=== PATIENT | female | born 1980 | race African-American/Black ===

== ENCOUNTER 2018-12-15 15:02 | Emergency (ER) | payer SELFPAY ==
[~2018-12-15] VITALS: Ht 162.6 cm; Wt 59.4 kg
[2018-12-15 15:14] VITALS: BP 136/83
--- NOTE | 2018-12-15 15:24 | PHYS DOC ---
Past Medical History Past Medical History: Anemia, Hypertension Adult General Chief Complaint Chief Complaint: RECTAL BLEED HPI HPI Patient is a 38-year-old female with history of anemia, hypertension, who presents to the ED today complaining of bloody stools noted one time yesterday a nd one time today. Patient stated this has happened 1 year ago. She is also complaining of mild abdominal pain described as cramping. Denies any fever, nausea, vomiting, or diarrhea. Denies being on any anticoagulants, she states she is allergic to aspirin. Denies anything exacerbating or relieving her pain. Review of Systems Review of Systems Constitutional: Denies fever or chills [] Eyes: Denies change in visual acuity, redness, or eye pain [] HENT: Denies nasal congestion or sore throat [] Respiratory: Denies cough or shortness of breath [] Cardiovascular: No additional information not addressed in HPI [] GI: Reports lower abdominal pain, reports rectal bleeding, denies nausea, vomiting, bloody stools or diarrhea [] : Denies dysuria or hematuria [] Musculoskeletal: Denies back pain or joint pain [] Integument: Denies rash or skin lesions [] Neurologic: Denies headache, focal weakness or sensory changes [] All other systems were reviewed and found to be within normal limits, except as documented in this note. Current Medications Current Medications Current Medications Medications (Trade) Dose Ordered Sig/Mónica Start Time Stop Time Status Last Admin Dose Admin Azithromycin (Zithromax) 1,000 mg 1X ONCE 12/15/18 16:15 12/15/18 16:16 DC 12/15/18 16:43 1,000 MG Ceftriaxone Sodium (Rocephin) 1 gm 1X ONCE 12/15/18 16:15 12/15/18 16:16 DC 12/15/18 16:43 1 GM Famotidine (Pepcid Vial) 20 mg 1X ONCE 12/15/18 15:30 12/15/18 16:05 DC 12/15/18 15:48 20 MG Info (CONTRAST GIVEN -- Rx MONITORING) 1 each PRN DAILY PRN 12/15/18 16:15 12/17/18 16:14 Iohexol (Omnipaque 300 Mg/ml) 75 ml 1X ONCE 12/15/18 16:15 12/15/18 16:16 DC 12/15/18 16:22 75 ML Metronidazole (Flagyl) 2,000 mg 1X ONCE 12/15/18 16:15 12/15/18 16:16 DC 12/15/18 16:43 2,000 MG Sodium Chloride 1,000 ml @ 1,000 mls/hr 1X ONCE 12/15/18 15:30 12/15/18 16:29 DC 12/15/18 15:31 1,000 MLS/HR Allergies Allergies Allergies Coded Allergies Type Severity Reaction Last Updated Verified No Known Drug Allergies 12/15/18 No Physical Exam Physical Exam Constitutional: Well developed, well nourished, no acute distress, non-toxic appearance. [] HENT: Normocephalic, atraumatic, bilateral external ears normal, oropharynx m oist, no oral exudates, nose normal. [] Eyes: PERRLA, EOMI, conjunctiva normal, no discharge. [] Neck: Normal range of motion, no tenderness, supple, no stridor. [] Cardiovascular:Heart rate regular rhythm, no murmur [] Lungs & Thorax: Bilateral breath sounds clear to auscultation [] Abdomen: Bowel sounds normal, soft, no tenderness, no masses, no pulsatile masses. [] Rectal exam External rectal noted for 2 or 3 peanut size hemorrhoids, no internal hemorrhoids. No palpable masses, no stool/bleeding noted on the lower rectal vault. Skin: Warm, dry, no erythema, no rash. [] Back: No tenderness, no CVA tenderness. [] Extremities: No tenderness, no cyanosis, no clubbing, ROM intact, no edema. [] Neurologic: Alert and oriented X 3, normal motor function, normal sensory function, no focal deficits noted. [] Psychologic: Affect normal, judgement normal, mood normal. [] Current Patient Data Vital Signs Vital Signs Date Time Temp Pulse Resp B/P (MAP) Pulse Ox O2 Delivery O2 Flow Rate FiO2 12/15/18 15:14 98.5 136/83 (100) 98.5 Lab Values Laboratory Tests Test 12/15/18 15:10 12/15/18 15:27 12/15/18 15:32 Urine Collection Type Unknown Urine Color Sonal Urine Clarity Cloudy Urine pH 6.0 Urine Specific [place] >=1.030 Urine Protein 100 mg/dL (NEG-TRACE) Urine Glucose (UA) Negative mg/dL (NEG) Urine Ketones (Stick) Negative mg/dL (NEG) Urine Blood Large (NEG) Urine Nitrite Positive (NEG) Urine Bilirubin Negative (NEG) Urine Urobilinogen Dipstick 1.0 mg/dL (0.2 mg/dL) Urine Leukocyte Esterase Moderate (NEG) Urine RBC Tntc /HPF (0-2) Urine WBC Tntc /HPF (0-4) Urine Squamous Epithelial Cells Many /LPF Urine Bacteria Many /HPF (0-FEW) Urine Trichomonas Present Urine Opiates Screen Neg (NEG) Urine Methadone Screen Neg (NEG) Urine Barbiturates Neg (NEG) Urine Phencyclidine Screen Pos (NEG) Urine Amphetamine/Methamphetamine Neg (NEG) Urine Benzodiazepines Screen Neg (NEG) Urine Cocaine Screen Neg (NEG) Urine Cannabinoids Screen Pos (NEG) Urine Ethyl Alcohol Neg (NEG) POC Urine HCG, Qualitative Hcg negative (Negative) White Blood Count 4.7 x10^3/uL (4.0-11.0) Red Blood Count 3.55 x10^6/uL (3.50-5.40) Hemoglobin 10.5 g/dL (12.0-15.5) L Hematocrit 32.0 % (36.0-47.0) L Mean Corpuscular Volume 90 fL (79-100) Mean Corpuscular Hemoglobin 30 pg (25-35) Mean Corpuscular Hemoglobin Concent 33 g/dL (31-37) Red Cell Distribution Width 14.4 % (11.5-14.5) Platelet Count 307 x10^3/uL (140-400) Neutrophils (%) (Auto) 37 % (31-73) Lymphocytes (%) (Auto) 51 % (24-48) H Monocytes (%) (Auto) 9 % (0-9) Eosinophils (%) (Auto) 2 % (0-3) Basophils (%) (Auto) 1 % (0-3) Neutrophils # (Auto) 1.8 x10^3/uL (1.8-7.7) Lymphocytes # (Auto) 2.4 x10^3/uL (1.0-4.8) Monocytes # (Auto) 0.4 x10^3/uL (0.0-1.1) Eosinophils # (Auto) 0.1 x10^3/uL (0.0-0.7) Basophils # (Auto) 0.1 x10^3/uL (0.0-0.2) Sodium Level 143 mmol/L (136-145) Potassium Level 3.7 mmol/L (3.5-5.1) Chloride Level 105 mmol/L (98-107) Carbon Dioxide Level 29 mmol/L (21-32) Anion Gap 9 (6-14) Blood Urea Nitrogen 13 mg/dL (7-20) Creatinine 1.0 mg/dL (0.6-1.0) Estimated GFR (Cockcroft-Gault) 75.5 BUN/Creatinine Ratio 13 (6-20) Glucose Level 90 mg/dL (70-99) Calcium Level 8.5 mg/dL (8.5-10.1) Total Bilirubin 0.2 mg/dL (0.2-1.0) Aspartate Amino Transferase (AST) 16 U/L (15-37) Alanine Aminotransferase (ALT) 14 U/L (14-59) Alkaline Phosphatase 67 U/L (46-116) Total Protein 6.8 g/dL (6.4-8.2) Albumin 3.3 g/dL (3.4-5.0) L Albumin/Globulin Ratio 0.9 (1.0-1.7) L Lipase 105 U/L (73-393) Ethyl Alcohol Level < 10 mg/dL (0-10) Laboratory Tests 12/15/18 15:32 Laboratory Tests 12/15/18 15:32 EKG EKG [] Radiology/Procedures Radiology/Procedures []PROCEDURE: CT ABD PELV W/ IV CONTRST ONLY CT abdomen pelvis with contrast. HISTORY: Abdominal pain, rectal bleeding CT scan the abdomen pelvis was done using 75 mL Isovue-370 contrast. Lung bases are clear. There is no effusion. A liver lesion is not identified. The gallbladder is contracted but the patient was not nothing by mouth. Spleen and adrenal glands are normal. Pancreas is normal. There is no renal mass or hydronephrosis. Bowel pattern is normal. Appendix is normal. Uterus and ovaries are normal. No abnormal bowel enhancement. There is no extravasated contrast into the bowel. There is not definitive CT evidence of a colitis IMPRESSION: 1. Contracted gallbladder. 2. Bowel pattern is normal. 3. Normal appendix. 4. No other acute finding noted in the abdomen or pelvis. PQRS Compliance Statement: One or more of the following individualized dose reduction techniques were utilized for this examination: 1. Automated exposure control 2. Adjustment of the mA and/or kV according to patient size 3. Use of iterative reconstruction technique Electronically signed by: Ward Zuniga MD (12/15/2018 4:29 PM) [id number] DICTATED and SIGNED BY: WARD ZUNIGA MD DATE: 12/15/18 1629 Course & Med Decision Making Course & Med Decision Making Pertinent Labs and Imaging studies reviewed. (See chart for details) This is a 38-year-old female patient presented to the ED today with complaints of rectal bleeding noted one time today and one time yesterday. On rectal exam no stool or bleeding was noted. Patient is a smoker, encouraged to consider smoking cessation. CBC with normal WBC, hemoglobin 10.5, hematocrit 32.0-patient has history of chronic anemia and is on iron tablets. CMP-no acute findings. Urine analysis is noted for UTI as well as Trichomonas. Patient was given standard STD treatment in the ED. Education provided. CT of the abdomen and pelvic is negative for any acute distress. Discharged to home. Discussed remedies of managing hemorrhoids including management of constipation as well as using [id number] remedies like Anusol suppository, docusate sodium, Tucks. Follow-up with PCP in 1-2 weeks. Dragon Disclaimer Dragon Disclaimer This electronic medical record was generated, in whole or in part, using a voice recognition dictation system. Departure Departure Impression: Primary Impression: Rectal bleed Additional Impressions: Hemorrhoids Smoking addiction Urinary tract infection Trichomonas vaginitis Disposition: HOME, SELF-CARE Condition: STABLE Referrals: BERNA PINA MD follow up as needed for bloody stools and hemorrhoids Patient Instructions: Hemorrhoids, Rectal Bleeding, [id number], Urinary Tract Infection Additional Instructions: You were evaluated in the emergency room for rectal bleeding which we suspect is from the hemorrhoids. Consider increasing your dietary fiber intake. Consider increasing your water intake. Use [id number] remedies including Anusol suppository cream for hemorrhoids. Consider smoking cessation. You were positive for urinary tract infection as well as Trichomonas. You were treated in the emergency room for Trichomonas, let all your partners know you have trichomonas and ask them seek treatment too. You also have urinary tract infection, ensure you complete your antibiotics. Scripts Hydrocortisone Acetate (ANUSOL-HC) 25 Mg Supp.rect 1 SUPP RC BID, #14 SUPP Prov: PATTI PEREZ PULMONOLOGY TECHNICIAN 12/15/18 Cephalexin (CEPHALEXIN) 500 Mg Capsule 1 CAP PO BID, #14 CAP Prov: PATTI PEREZ APRN 12/15/18 Problem Qualifiers Additional Impressions: Hemorrhoids Hemorrhoid type: unspecified Qualified Codes: K64.9 - Unspecified hemorrhoids Urinary tract infection Urinary tract infection type: site unspecified Hematuria presence: without hematuria Qualified Codes: N39.0 - Urinary tract infection, site not specified PATTI PEREZ APRN Dec 15, 2018 15:24
[2018-12-15] MEDS ORDERED: FAMOTIDINE 20 MG/2 ML VIAL IVP ONE (15:30)
[2018-12-15] MEDS ORDERED: IV NORMAL SALINE 1000ML BAG 1,000 ML IV ONE (15:30)
[2018-12-15 15:42] LABS: BASO # 0.1 x10^3/uL (0.0-0.2); BASO % 1 % (0-3); EOS # 0.1 x10^3/uL (0.0-0.7); EOS % 2 % (0-3); HEMOGLOBIN 10.5 g/dL (12.0-15.5); LYMPH # 2.4 x10^3/uL (1.0-4.8); LYMPH % 51 % (24-48); MEAN CORPUSCULAR HEMOGLOBIN 30 pg (25-35); MEAN CORPUSCULAR HGB CONC 33 g/dL (31-37); MEAN CORPUSCULAR VOLUME 90 fL (79-100); MONO # 0.4 x10^3/uL (0.0-1.1); MONO % 9 % (0-9); NEUT # 1.8 x10^3/uL (1.8-7.7); NEUT % 37 % (31-73); PLATELET COUNT 307 x10^3/uL (140-400); RED BLOOD COUNT 3.55 x10^6/uL (3.50-5.40); RED CELL DISTRIBUTION WIDTH 14.4 % (11.5-14.5); WHITE BLOOD COUNT 4.7 x10^3/uL (4.0-11.0)
[2018-12-15 15:42] LABS: BILIRUBIN,URINE NEGATIVE (NEG); CLARITY,URINE CLOUDY; COLOR,URINE AMBER; NITRITE,URINE POSITIVE (NEG); PROTEIN,URINE 100 mg/dL (NEG-TRACE)
[2018-12-15 15:47] LABS: BARBITURATES NEG (NEG); BENZODIAZEPINES NEG (NEG); CANNABINOIDS POS (NEG); COCAINE NEG (NEG); METHADONE NEG (NEG); OPIATES NEG (NEG); PHENCYCLIDINE POS (NEG)
[2018-12-15 15:49] LABS: CALCIUM 8.5 mg/dL (8.5-10.1); GFR 75.5; POTASSIUM 3.7 mmol/L (3.5-5.1)
[2018-12-15 15:49] LABS: AMPHETAMINE/METHAMPHETAMINE NEG (NEG)
[2018-12-15 15:53] LABS: BACTERIA,URINE MANY /HPF (0-FEW); RBC,URINE TNTC /HPF (0-2); SQUAMOUS EPITHELIAL CELL,UR MANY /LPF; WBC,URINE TNTC /HPF (0-4)
[2018-12-15 15:54] LABS: TRICHOMONAS,URINE PRESENT
[2018-12-15 15:56] LABS: ALBUMIN 3.3 g/dL (3.4-5.0); ALBUMIN/GLOBULIN RATIO 0.9 (1.0-1.7); TOTAL BILIRUBIN 0.2 mg/dL (0.2-1.0); TOTAL PROTEIN 6.8 g/dL (6.4-8.2)
[2018-12-15] MEDS ORDERED: IOHEXOL 300 MG/ML 100ML VIAL. IV ONE (16:15)
[2018-12-15] MEDS ORDERED: cefTRIAXone IV Push 1 GM VIAL. IVP ONE (16:15)
[2018-12-15] MEDS ORDERED: metroNIDAZOLE 500 MG TABLET PO ONE (16:15)
[2018-12-15] MEDS ORDERED: CONTRAST GIVEN. MC PRN (16:15)
[2018-12-15] MEDS ORDERED: AZITHROMYCIN 250 MG TABLET. PO ONE (16:15)
--- NOTE | 2018-12-15 16:32 | RAD ---
CT abdomen pelvis with contrast. HISTORY: Abdominal pain, rectal bleeding CT scan the abdomen pelvis was done using 75 mL Isovue-370 contrast. Lung bases are clear. There is no effusion. A liver lesion is not identified. The gallbladder is contracted but the patient was not nothing by mouth. Spleen and adrenal glands are normal. Pancreas is normal. There is no renal mass or hydronephrosis. Bowel pattern is normal. Appendix is normal. Uterus and ovaries are normal. No abnormal bowel enhancement. There is no extravasated contrast into the bowel. There is not definitive CT evidence of a colitis IMPRESSION: 1. Contracted gallbladder. 2. Bowel pattern is normal. 3. Normal appendix. 4. No other acute finding noted in the abdomen or pelvis. PQRS Compliance Statement: One or more of the following individualized dose reduction techniques were utilized for this examination: 1. Automated exposure control 2. Adjustment of the mA and/or kV according to patient size 3. Use of iterative reconstruction technique Electronically signed by: Ward Sparks MD (12/15/2018 4:29 PM) [id number]
[2018-12-15] MEDS ORDERED: CEPH500C PO (16:51)
[2018-12-15] MEDS ORDERED: HYDR25SU18 RC (16:51)
== END 2018-12-15 17:05 | disposition home or self-care (01) ==
LOC: ER 15:02
DX: K62.5 Hemorrhage of anus and rectum (principal); R10.30 Lower abdominal pain, unspecified; K64.4 Residual hemorrhoidal skin tags; N39.0 Urinary tract infection, site not specified; A59.01 Trichomonal vulvovaginitis; F17.200 Nicotine dependence, unspecified, uncomplicated; I10 Essential (primary) hypertension
CPT/HCPCS: 36415; 74177; 80053; 80307; 81001; 81025; 83690; 85025; 96374; 96375; 99285; G0480; J0696; J3490; J7030; Q0144; Q9967; 96361

== ENCOUNTER 2019-01-11 14:07 | Emergency (ER) | payer SELFPAY ==
[~2019-01-11] VITALS: Ht 162.6 cm; Wt 58.1 kg
[~2019-01-11 14:07] MED LIST: CEPH500C PO; HYDR25SU18 RC
[2019-01-11 16:10] LABS: BASO % 1 % (0-3); EOS # 0.1 x10^3/uL (0.0-0.7); EOS % 3 % (0-3); HEMATOCRIT 33.7 % (36.0-47.0); HEMOGLOBIN 11.2 g/dL (12.0-15.5); LYMPH # 2.1 x10^3/uL (1.0-4.8); LYMPH % 57 % (24-48); MEAN CORPUSCULAR HEMOGLOBIN 29 pg (25-35); MEAN CORPUSCULAR HGB CONC 33 g/dL (31-37); MEAN CORPUSCULAR VOLUME 88 fL (79-100); MONO # 0.3 x10^3/uL (0.0-1.1); MONO % 8 % (0-9); NEUT # 1.1 x10^3/uL (1.8-7.7); NEUT % 31 % (31-73); PLATELET COUNT 242 x10^3/uL (140-400); RED BLOOD COUNT 3.82 x10^6/uL (3.50-5.40); RED CELL DISTRIBUTION WIDTH 13.7 % (11.5-14.5); WHITE BLOOD COUNT 3.6 x10^3/uL (4.0-11.0)
[2019-01-11 16:17] LABS: BILIRUBIN,URINE SMALL (NEG); CLARITY,URINE TURBID; COLOR,URINE AMBER; NITRITE,URINE NEGATIVE (NEG); PROTEIN,URINE 30 mg/dL (NEG-TRACE); UROBILINOGEN,URINE 0.2 mg/dL (0.2 mg/dL)
[2019-01-11 16:19] LABS: CREATININE 0.8 mg/dL (0.6-1.0); GFR 97.7; POTASSIUM 3.4 mmol/L (3.5-5.1)
[2019-01-11 16:25] LABS: ALBUMIN 3.7 g/dL (3.4-5.0); TOTAL BILIRUBIN 0.6 mg/dL (0.2-1.0); TOTAL PROTEIN 7.3 g/dL (6.4-8.2)
[2019-01-11 16:25] LABS: AMPHETAMINE/METHAMPHETAMINE NEG (NEG); BARBITURATES NEG (NEG); BENZODIAZEPINES NEG (NEG); CANNABINOIDS POS (NEG); COCAINE NEG (NEG); METHADONE NEG (NEG); OPIATES NEG (NEG); PHENCYCLIDINE POS (NEG)
[2019-01-11 16:26] LABS: FECAL OB PT NEGATIVE (NEG)
[2019-01-11 17:11] LABS: AMORPHOUS SEDIMENT,UR PRESENT /HPF; BACTERIA,URINE 0 /HPF (0-FEW); RBC,URINE 0 /HPF (0-2); SQUAMOUS EPITHELIAL CELL,UR MOD /LPF; WBC,URINE 0 /HPF (0-4)
[2019-01-11] MEDS ORDERED: HYDR30CR61 TP (17:45)
--- NOTE | 2019-01-11 17:45 | PHYS DOC ---
Past Medical History Past Medical History: Anemia, Hypertension Additional Past Surgical Histo: D&C Alcohol Use: Occasionally Drug Use: Marijuana, Phencyclidine Adult General Chief Complaint Chief Complaint: RECTAL BLEED HPI HPI Patient is a 38 year old female with history of hypertension, anemia, who presents to the ED today complaining of rectal bleeding from hemorrhoids that is chronic, as well as mild abdominal cramping during bowel movements. Patient states she was seen in the ED a month ago for the same complaints and was instructed to buy some medication. She states she could not afford the medication has did not use it. Denies any nausea, vomiting. Review of Systems Review of Systems Constitutional: Denies fever or chills [] Eyes: Denies change in visual acuity, redness, or eye pain [] HENT: Denies nasal congestion or sore throat [] Respiratory: Denies cough or shortness of breath [] Cardiovascular: No additional information not addressed in HPI [] GI: Reports abdominal pain, rectal pain, bloody stools, denies nausea, vomiting, or diarrhea [] : Denies dysuria or hematuria [] Musculoskeletal: Denies back pain or joint pain [] Integument: Denies rash or skin lesions [] Neurologic: Denies headache, focal weakness or sensory changes [] Endocrine: Denies polyuria or polydipsia [] All other systems were reviewed and found to be within normal limits, except as documented in this note. Allergies Allergies Allergies Coded Allergies Type Severity Reaction Last Updated Verified No Known Drug Allergies 12/15/18 No Physical Exam Physical Exam Constitutional: Well developed, well nourished, no acute distress, non-toxic appearance. [] HENT: Normocephalic, atraumatic, bilateral external ears normal, oropharynx moist, no oral exudates, nose normal. [] Eyes: PERRLA, EOMI, conjunctiva normal, no discharge. [] Neck: Normal range of motion, no tenderness, supple, no stridor. [] Cardiovascular:Heart rate regular rhythm, no murmur [] Lungs & Thorax: Bilateral breath sounds clear to auscultation [] Abdomen: Bowel sounds normal, soft, no tenderness, no masses, no pulsatile eugenia s. [] Rectal exam External rectal region with small amount of hemorrhoids, no internal hemorrhoids, none of this hemorrhoids are thrombosed. Skin: Warm, dry, no erythema, no rash. [] Back: No tenderness, no CVA tenderness. [] Extremities: No tenderness, no cyanosis, no clubbing, ROM intact, no edema. [] Neurologic: Alert and oriented X 3, normal motor function, normal sensory function, no focal deficits noted. [] Psychologic: Affect normal, judgement normal, mood normal. [] Current Patient Data Vital Signs Vital Signs Date Time Temp Pulse Resp B/P (MAP) Pulse Ox O2 Delivery O2 Flow Rate FiO2 01/11/19 15:19 97.9 70 14 126/82 (97) 99 Room Air 97.9 Lab Values Laboratory Tests Test 01/11/19 14:25 01/11/19 14:43 01/11/19 15:10 01/11/19 16:00 Urine Collection Type Unknown Urine Color Sonal Urine Clarity Turbid Urine pH 6.0 Urine Specific [place] >=1.030 Urine Protein 30 mg/dL (NEG-TRACE) Urine Glucose (UA) Negative mg/dL (NEG) Urine Ketones (Stick) Negative mg/dL (NEG) Urine Blood Moderate (NEG) Urine Nitrite Negative (NEG) Urine Bilirubin Small (NEG) Urine Urobilinogen Dipstick 0.2 mg/dL (0.2 mg/dL) Urine Leukocyte Esterase Negative (NEG) Urine RBC 0 /HPF (0-2) Urine WBC 0 /HPF (0-4) Urine Squamous Epithelial Cells Mod /LPF Urine Amorphous Sediment Present /HPF Urine Bacteria 0 /HPF (0-FEW) Urine Mucus Slight /LPF Urine Opiates Screen Neg (NEG) Urine Methadone Screen Neg (NEG) Urine Barbiturates Neg (NEG) Urine Phencyclidine Screen Pos (NEG) Urine Amphetamine/Methamphetamine Neg (NEG) Urine Benzodiazepines Screen Neg (NEG) Urine Cocaine Screen Neg (NEG) Urine Cannabinoids Screen Pos (NEG) Urine Ethyl Alcohol Neg (NEG) POC Urine HCG, Qualitative Hcg negative (Negative) Stool Occult Blood Negative (NEG) White Blood Count 3.6 x10^3/uL (4.0-11.0) L Red Blood Count 3.82 x10^6/uL (3.50-5.40) Hemoglobin 11.2 g/dL (12.0-15.5) L Hematocrit 33.7 % (36.0-47.0) L Mean Corpuscular Volume 88 fL (79-100) Mean Corpuscular Hemoglobin 29 pg (25-35) Mean Corpuscular Hemoglobin Concent 33 g/dL (31-37) Red Cell Distribution Width 13.7 % (11.5-14.5) Platelet Count 242 x10^3/uL (140-400) Neutrophils (%) (Auto) 31 % (31-73) Lymphocytes (%) (Auto) 57 % (24-48) H Monocytes (%) (Auto) 8 % (0-9) Eosinophils (%) (Auto) 3 % (0-3) Basophils (%) (Auto) 1 % (0-3) Neutrophils # (Auto) 1.1 x10^3/uL (1.8-7.7) L Lymphocytes # (Auto) 2.1 x10^3/uL (1.0-4.8) Monocytes # (Auto) 0.3 x10^3/uL (0.0-1.1) Eosinophils # (Auto) 0.1 x10^3/uL (0.0-0.7) Basophils # (Auto) 0.0 x10^3/uL (0.0-0.2) Sodium Level 142 mmol/L (136-145) Potassium Level 3.4 mmol/L (3.5-5.1) L Chloride Level 104 mmol/L (98-107) Carbon Dioxide Level 27 mmol/L (21-32) Anion Gap 11 (6-14) Blood Urea Nitrogen 13 mg/dL (7-20) Creatinine 0.8 mg/dL (0.6-1.0) Estimated GFR (Cockcroft-Gault) 97.7 BUN/Creatinine Ratio 16 (6-20) Glucose Level 96 mg/dL (70-99) Calcium Level 9.0 mg/dL (8.5-10.1) Total Bilirubin 0.6 mg/dL (0.2-1.0) Aspartate Amino Transferase (AST) 18 U/L (15-37) Alanine Aminotransferase (ALT) 15 U/L (14-59) Alkaline Phosphatase 65 U/L (46-116) Total Protein 7.3 g/dL (6.4-8.2) Albumin 3.7 g/dL (3.4-5.0) Albumin/Globulin Ratio 1.0 (1.0-1.7) Lipase 68 U/L (73-393) L Ethyl Alcohol Level < 10 mg/dL (0-10) Laboratory Tests 01/11/19 16:00 Laboratory Tests 01/11/19 16:00 EKG EKG [] Radiology/Procedures Radiology/Procedures [] Course & Med Decision Making Course & Med Decision Making Pertinent Labs and Imaging studies reviewed. (See chart for details) This is a 38-year-old female patient who presents to the ED today complaining of rectal pain with bleeding due to hemorrhoids as well as lower abdominal pain. Symptoms are chronic. CBC with a normal WBC, hemoglobin 11.2, hematocrit 33.7-around patient's baseline. CMP with no acute findings. Urine analysis is negative for infection. Urine drug screen noted for PCP and marijuana use. Patient was again advised to stop using drugs. Lisa from the PAT team was available, she went and talked to patient We discussed hemorrhoid management. Dragon Disclaimer Dragon Disclaimer This electronic medical record was generated, in whole or in part, using a voice recognition dictation system. Departure Departure Impression: Primary Impression: Hemorrhoids Additional Impressions: Rectal bleed Drug abuse Disposition: HOME, SELF-CARE Condition: STABLE Referrals: NO PCP (PCP) FER HERRING MD Follow-up in one week Patient Instructions: Hemorrhoids Additional Instructions: You were evaluated in the emergency room for rectal bleeding, and noted to have hemorrhoids. Please increase your dietary fiber intake, increase your water use the prescribed medications as ordered. Scripts Hydrocortisone (ANUSOL-HC) 30 Gm Cream..g. 1 RACHAEL TP BID, #30 GM 1 Refill Prov: PATTI PEREZ APRN 01/11/19 Problem Qualifiers Primary Impression: Hemorrhoids Hemorrhoid type: unspecified Qualified Codes: K64.9 - Unspecified hemorrhoids PATTI PEREZ APRN Jan 11, 2019 17:45
[2019-01-11 17:54] VITALS: BP 153/102
== END 2019-01-11 18:02 | disposition home or self-care (01) ==
LOC: ER 14:07
DX: K64.5 Perianal venous thrombosis (principal); F12.10 Cannabis abuse, uncomplicated; F16.10 Hallucinogen abuse, uncomplicated; I10 Essential (primary) hypertension; Z86.2 Personal history of diseases of the blood and blood-forming organs and certain disorders involving the immune mechanism
CPT/HCPCS: 36415; 80053; 80307; 81001; 81025; 82274; 83690; 85025; 99284; G0480

== ENCOUNTER 2019-08-09 16:13 | Emergency (ER) | payer SELFPAY ==
[~2019-08-09] VITALS: Ht 162.6 cm; Wt 58.0 kg
[~2019-08-09 16:13] MED LIST changes: +HYDR30CR61 TP
--- NOTE | 2019-08-09 16:49 | PHYS DOC ---
Past Medical History Past Medical History: Anemia, Hypertension Additional Past Surgical Histo: D&C Smoking Status: Current Every Day Smoker Alcohol Use: Occasionally Drug Use: Marijuana, Phencyclidine Adult General Chief Complaint Chief Complaint: ALCOHOL INTOXICATION HPI HPI Patient is a 39 year old female with history of anemia, hypertension, drug abuse, who presents to the ED today to be evaluated after being found on the streets passed out and drank. They report she admitted to drinking vodka. Review of Systems Review of Systems Constitutional: Denies fever or chills [] Eyes: Denies change in visual acuity, redness, or eye pain [] HENT: Denies nasal congestion or sore throat [] Respiratory: Denies cough or shortness of breath [] Cardiovascular: No additional information not addressed in HPI [] GI: Denies abdominal pain, nausea, vomiting, bloody stools or diarrhea [] : Denies dysuria or hematuria [] Musculoskeletal: Denies back pain or joint pain [] Integument: Denies rash or skin lesions [] Neurologic: Denies headache, focal weakness or sensory changes [] Psych: Reports alcohol intoxication All other systems were reviewed and found to be within normal limits, except as documented in this note. Current Medications Current Medications Current Medications Medications (Trade) Dose Ordered Sig/Mónica Start Time Stop Time Status Last Admin Dose Admin Azithromycin (Zithromax) 1,000 mg 1X ONCE 08/09/19 18:30 08/09/19 18:32 DC Ceftriaxone Sodium (Rocephin) 1 gm 1X ONCE 08/09/19 18:30 08/09/19 18:32 DC Labetalol HCl (Normodyne Iv Push) 10 mg 1X ONCE 08/09/19 16:45 08/09/19 16:46 DC 08/09/19 17:22 10 MG Metronidazole (Flagyl) 2,000 mg 1X ONCE 08/09/19 18:45 08/09/19 18:46 Multivitamins 10 ml/Thiamine HCl 100 mg/Folic Acid 1 mg/Sodium Chloride 1,011.2 ml @ 1,000.088 mls/hr 1X ONCE 08/09/19 16:45 08/09/19 17:45 DC 08/09/19 17:22 1,000.088 MLS/HR Ondansetron HCl (Zofran) 4 mg 1X ONCE 08/09/19 18:30 08/09/19 18:32 DC Allergies Allergies Allergies Coded Allergies Type Severity Reaction Last Updated Verified No Known Drug Allergies 12/15/18 No Physical Exam Physical Exam Constitutional: Shivering. Well developed, well nourished, no acute distress, non-toxic appearance. [] HENT: Normocephalic, atraumatic, bilateral external ears normal, oropharynx moist, no oral exudates, nose normal. [] Eyes: PERRLA, EOMI, conjunctiva normal, no discharge. [] Neck: Normal range of motion, no tenderness, supple, no stridor. [] Cardiovascular: Tachycardic Lungs & Thorax: Bilateral breath sounds clear to auscultation [] Abdomen: Bowel sounds normal, soft, no tenderness, no masses, no pulsatile masses. [] Skin: Warm, dry, no erythema, no rash. [] Back: No tenderness, no CVA tenderness. [] Extremities: No tenderness, no cyanosis, no clubbing, ROM intact, no edema. [] Neurologic: Alert and oriented X 1, normal motor function, normal sensory function, no focal deficits noted. [] Psychologic: Flat affect, appears intoxicated Current Patient Data Vital Signs Vital Signs Date Time Temp Pulse Resp B/P (MAP) Pulse Ox O2 Delivery O2 Flow Rate FiO2 08/09/19 17:22 78 203/144 08/09/19 16:15 97.6 18 100 Room Air 97.6 Lab Values Laboratory Tests Test 08/09/19 16:40 08/09/19 17:00 08/09/19 17:04 White Blood Count 5.8 x10^3/uL (4.0-11.0) Red Blood Count 4.71 x10^6/uL (3.50-5.40) Hemoglobin 13.7 g/dL (12.0-15.5) Hematocrit 41.7 % (36.0-47.0) Mean Corpuscular Volume 89 fL (79-100) Mean Corpuscular Hemoglobin 29 pg (25-35) Mean Corpuscular Hemoglobin Concent 33 g/dL (31-37) Red Cell Distribution Width 14.8 % (11.5-14.5) H Platelet Count 307 x10^3/uL (140-400) Neutrophils (%) (Auto) 46 % (31-73) Lymphocytes (%) (Auto) 46 % (24-48) Monocytes (%) (Auto) 6 % (0-9) Eosinophils (%) (Auto) 2 % (0-3) Basophils (%) (Auto) 1 % (0-3) Neutrophils # (Auto) 2.6 x10^3/uL (1.8-7.7) Lymphocytes # (Auto) 2.6 x10^3/uL (1.0-4.8) Monocytes # (Auto) 0.3 x10^3/uL (0.0-1.1) Eosinophils # (Auto) 0.1 x10^3/uL (0.0-0.7) Basophils # (Auto) 0.1 x10^3/uL (0.0-0.2) Urine Collection Type U cath Urine Color Yellow Urine Clarity Cloudy Urine pH 7.0 (<5.0-8.0) Urine Specific [place] 1.015 (1.000-1.030) Urine Protein Negative mg/dL (NEG-TRACE) Urine Glucose (UA) Negative mg/dL (NEG) Urine Ketones (Stick) Negative mg/dL (NEG) Urine Blood Large (NEG) Urine Nitrite Negative (NEG) Urine Bilirubin Negative (NEG) Urine Urobilinogen Dipstick 0.2 mg/dL (0.2 mg/dL) Urine Leukocyte Esterase Large (NEG) Urine RBC >40 /HPF (0-2) Urine WBC Tntc /HPF (0-4) Urine Squamous Epithelial Cells Mod /LPF Urine Bacteria Many /HPF (0-FEW) Urine Mucus Marked /LPF Urine Trichomonas Present Urine Test Negative (NEG) Urine Opiates Screen Neg (NEG) Urine Methadone Screen Neg (NEG) Urine Barbiturates Neg (NEG) Urine Phencyclidine Screen Pos (NEG) Urine Amphetamine/Methamphetamine Neg (NEG) Urine Benzodiazepines Screen Neg (NEG) Urine Cocaine Screen Neg (NEG) Urine Cannabinoids Screen Pos (NEG) Urine Ethyl Alcohol Pos (NEG) Sodium Level 135 mmol/L (136-145) L Potassium Level 3.6 mmol/L (3.5-5.1) Chloride Level 99 mmol/L (98-107) Carbon Dioxide Level 25 mmol/L (21-32) Anion Gap 11 (6-14) Blood Urea Nitrogen 11 mg/dL (7-20) Creatinine 0.7 mg/dL (0.6-1.0) Estimated GFR (Cockcroft-Gault) 113.3 BUN/Creatinine Ratio 16 (6-20) Glucose Level 79 mg/dL (70-99) Calcium Level 8.8 mg/dL (8.5-10.1) Magnesium Level 1.9 mg/dL (1.8-2.4) Total Bilirubin 0.1 mg/dL (0.2-1.0) L Aspartate Amino Transferase (AST) 25 U/L (15-37) Alanine Aminotransferase (ALT) 21 U/L (14-59) Alkaline Phosphatase 90 U/L (46-116) Total Protein 8.2 g/dL (6.4-8.2) Albumin 3.9 g/dL (3.4-5.0) Albumin/Globulin Ratio 0.9 (1.0-1.7) L Lipase 79 U/L (73-393) Salicylates Level 3.5 mg/dL (2.8-20.0) Salicylate Last Dose Date Unknown Salicylate Last Dose Time Unknown Acetaminophen Level < 2 mcg/ml (10-30) L Acetaminophen Last Dose Date Unknown Acetaminophen Last Dose Time Unknown Ethyl Alcohol Level 21 mg/dL (0-10) H Laboratory Tests 08/09/19 16:40 Laboratory Tests 08/09/19 17:04 EKG EKG [] Radiology/Procedures Radiology/Procedures []PROCEDURE: CT HEAD WO CONTRAST CT HEAD WO CONTRAST History: Altered mental status Comparison: None. Technique: Noncontrast CT imaging was performed of the head. Exposure: One or more of the following individualized dose reduction techniques were utilized for this examination: 1. Automated exposure control 2. Adjustment of the mA and/or kV according to patient size 3. Use of iterative reconstruction technique. Findings: No acute extra-axial or parenchymal hemorrhage is identified. There is no significant intra-axial mass effect, midline shift, or extra-axial fluid collection. The mariscal-white differentiation of the major vascular territories is preserved. The ventricles, sulci, and cisterns are within normal limits in size and configuration. The mastoid air cells and the visualized paranasal sinuses are aerated. No acute calvarial abnormality is identified. Impression: 1. No acute intracranial abnormality is identified. Electronically signed by: Micah Lee MD (08/09/2019 5:45 PM) [facility] DICTATED and SIGNED BY: MICAH LEE MD DATE: 08/09/19 4499 Course & Med Decision Making Course & Med Decision Making Pertinent Labs and Imaging studies reviewed. (See chart for details) This is a 39-year-old female patient presenting to the ED today to be evaluated for alcohol intoxication. Patient was found passed out on the streets. CT of the head is negative for any acute findings. CBC, CMP, lipase-no acute findings UDS positive for alcohol, alcohol level 21, also positive for marijuana and PCP. Urine positive for UTI and Trichomonas. Patient was treated in the emergency room. Patient is currently sober, awake, answering questions and following directions. Her blood pressure was 234/148 HR 83 on arrival to the ED, she has history of uncontrolled hypertension. She was given labetalol in the ED. Blood pressure has come down to 190/100's. Discharged on clonidine. She refused help with alcohol and drug abuse. Discharge to home. Dragon Disclaimer Dragon Disclaimer This electronic medical record was generated, in whole or in part, using a voice recognition dictation system. Departure Departure Impression: Primary Impression: ETOHism Additional Impressions: Trichomonas vaginitis Urinary tract infection PCP (phencyclidine) abuse Accelerated hypertension Disposition: HOME, SELF-CARE Condition: STABLE Referrals: NO PCP (PCP) Follow-up with [facility] for drug abuse Patient Instructions: Alcohol Problems, Trichomoniasis, Urinary Tract Infection Additional Instructions: You were evaluated in the emergency room for alcohol intoxication and drug abuse. You also tested positive for trichomonas and UTI. Complete the prescribed antibiotics. Consider getting help for alcohol and drug use. Follow up with your doctor for blood pressure management Scripts Sulfamethoxazole/Trimethoprim (BACTRIM 400-80 MG TABLET) 1 Each Tablet 1 TAB PO BID for 7 Days, #14 TAB 0 Refills Prov: MICHEALAPATTI CORE DROPPER 08/09/19 Clonidine Hcl (CLONIDINE HCL) 0.1 Mg Tablet 1 TAB PO DAILY, #30 TAB 2 Refills Prov: PATTI PEREZ CORE DROPPER 08/09/19 Problem Qualifiers Additional Impressions: Urinary tract infection Urinary tract infection type: site unspecified Hematuria presence: without hematuria Qualified Codes: N39.0 - Urinary tract infection, site not speci fied PATTI PEREZ CORE DROPPER Aug 09, 2019 16:49
[2019-08-09 16:53] LABS: BASO # 0.1 x10^3/uL (0.0-0.2); BASO % 1 % (0-3); EOS # 0.1 x10^3/uL (0.0-0.7); EOS % 2 % (0-3); HEMATOCRIT 41.7 % (36.0-47.0); HEMOGLOBIN 13.7 g/dL (12.0-15.5); LYMPH # 2.6 x10^3/uL (1.0-4.8); LYMPH % 46 % (24-48); MEAN CORPUSCULAR HEMOGLOBIN 29 pg (25-35); MEAN CORPUSCULAR HGB CONC 33 g/dL (31-37); MEAN CORPUSCULAR VOLUME 89 fL (79-100); MONO # 0.3 x10^3/uL (0.0-1.1); MONO % 6 % (0-9); NEUT # 2.6 x10^3/uL (1.8-7.7); NEUT % 46 % (31-73); PLATELET COUNT 307 x10^3/uL (140-400); RED BLOOD COUNT 4.71 x10^6/uL (3.50-5.40); RED CELL DISTRIBUTION WIDTH 14.8 % (11.5-14.5); WHITE BLOOD COUNT 5.8 x10^3/uL (4.0-11.0)
[2019-08-09 17:10] LABS: BILIRUBIN,URINE NEGATIVE (NEG); CLARITY,URINE CLOUDY; COLOR,URINE YELLOW; NITRITE,URINE NEGATIVE (NEG); PROTEIN,URINE NEGATIVE (NEG-TRACE); UROBILINOGEN,URINE 0.2 mg/dL (0.2 mg/dL)
[2019-08-09 17:16] LABS: BACTERIA,URINE MANY /HPF (0-FEW); RBC,URINE >40 /HPF (0-2); SQUAMOUS EPITHELIAL CELL,UR MOD /LPF; TRICHOMONAS,URINE PRESENT; WBC,URINE TNTC /HPF (0-4)
[2019-08-09 17:18] LABS: BARBITURATES NEG (NEG); BENZODIAZEPINES NEG (NEG); CANNABINOIDS POS (NEG); COCAINE NEG (NEG); METHADONE NEG (NEG); OPIATES NEG (NEG); PHENCYCLIDINE POS (NEG); U PREG PATIENT NEGATIVE (NEG)
[2019-08-09] MEDS: MULTIVIT INFUSN,ADULT 4,VIT K 10 ML, THIAMINE INJ 100 MG, FOLIC ACID INJ 1 MG in IV NOR... IV ONE (17:22)
[2019-08-09] MEDS: LABETALOL 20 MG/4 ML DISP.SYRIN. IVP ONE (17:22)
[2019-08-09 17:23] LABS: AMPHETAMINE/METHAMPHETAMINE NEG (NEG)
[2019-08-09 17:29] LABS: CALCIUM 8.8 mg/dL (8.5-10.1); CREATININE 0.7 mg/dL (0.6-1.0); GFR 113.3; POTASSIUM 3.6 mmol/L (3.5-5.1)
[2019-08-09 17:34] LABS: SALIC 3.5 mg/dL (2.8-20.0)
[2019-08-09 17:35] LABS: ACETAMIN < 2 mcg/ml (10-30); ALBUMIN 3.9 g/dL (3.4-5.0); ALBUMIN/GLOBULIN RATIO 0.9 (1.0-1.7); MAGNESIUM 1.9 mg/dL (1.8-2.4); TOTAL BILIRUBIN 0.1 mg/dL (0.2-1.0); TOTAL PROTEIN 8.2 g/dL (6.4-8.2)
--- NOTE | 2019-08-09 17:49 | RAD ---
CT HEAD WO CONTRAST History: Altered mental status Comparison: None. Technique: Noncontrast CT imaging was performed of the head. Exposure: One or more of the following individualized dose reduction techniques were utilized for this examination: 1. Automated exposure control 2. Adjustment of the mA and/or kV according to patient size 3. Use of iterative reconstruction technique. Findings: No acute extra-axial or parenchymal hemorrhage is identified. There is no significant intra-axial mass effect, midline shift, or extra-axial fluid collection. The mariscal-white differentiation of the major vascular territories is preserved. The ventricles, sulci, and cisterns are within normal limits in size and configuration. The mastoid air cells and the visualized paranasal sinuses are aerated. No acute calvarial abnormality is identified. Impression: 1. No acute intracranial abnormality is identified. Electronically signed by: Huy Izaguirre MD (08/09/2019 5:45 PM) [facility]
[2019-08-09] MEDS ORDERED: SULF1TAB23 PO (18:41)
[2019-08-09] MEDS ORDERED: CLON0.1T PO (18:41)
[2019-08-09] MEDS: ONDANSETRON PF 4 MG/2 ML VIAL. IVP ONE (18:51)
[2019-08-09] MEDS: AZITHROMYCIN 250 MG TABLET. PO ONE (18:51)
[2019-08-09] MEDS: metroNIDAZOLE 500 MG TABLET PO ONE (18:51)
[2019-08-09] MEDS: cefTRIAXone IV Push 1 GM VIAL. IVP ONE (18:52)
[2019-08-09 19:23] VITALS: BP 193/132
== END 2019-08-09 20:05 | disposition home or self-care (01) ==
LOC: ER 16:13
DX: F10.229 Alcohol dependence with intoxication, unspecified (principal); N39.0 Urinary tract infection, site not specified; A59.01 Trichomonal vulvovaginitis; N76.0 Acute vaginitis; I10 Essential (primary) hypertension; F12.90 Cannabis use, unspecified, uncomplicated; F15.90 Other stimulant use, unspecified, uncomplicated; F17.200 Nicotine dependence, unspecified, uncomplicated; Z98.890 Other specified postprocedural states
CPT/HCPCS: 36415; 70450; 80053; 80307; 80329; 81001; 81025; 83690; 83735; 85025; 96365; 96375; 99285; G0480; J0696; J2405; J3411; J3490; J7030

== ENCOUNTER 2020-07-30 17:21 | Emergency (ER) | payer SELFPAY ==
[~2020-07-30] VITALS: Ht 162.6 cm; Wt 62.7 kg
[~2020-07-30 17:21] MED LIST changes: +CLON0.1T PO; +SULF1TAB23 PO
[2020-07-30] MEDS ORDERED: DOXY100C2 PO (21:34)
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
[2020-07-30 21:44] VITALS: BP 146/101
[2020-07-30] MEDS ORDERED: FLUCONAZOLE 100 MG TABLET. PO ONE (22:00)
[2020-07-30] MEDS ORDERED: ONDANSETRON ODT 4 MG TAB.RAPDIS. PO ONE (22:00)
[2020-07-30] MEDS ORDERED: metroNIDAZOLE 500 MG TABLET PO ONE (22:00)
[2020-07-30] MEDS ORDERED: cefTRIAXone IM 500 MG VIAL. IM ONE (22:00)
== END 2020-07-30 21:55 | disposition home or self-care (01) ==
LOC: ER 17:21
DX: A59.01 Trichomonal vulvovaginitis (principal); B37.3 Candidiasis of vulva and vagina; I10 Essential (primary) hypertension; F17.200 Nicotine dependence, unspecified, uncomplicated; Y90.9 Presence of alcohol in blood, level not specified; F10.20 Alcohol dependence, uncomplicated; Z88.6 Allergy status to analgesic agent; Z88.8 Allergy status to other drugs, medicaments and biological substances
CPT/HCPCS: 81025; 87491; 87591; 96372; 99285; J0696; Q0111

== ENCOUNTER 2020-12-20 11:32 | Emergency (ER) | payer SELFPAY ==
[~2020-12-20] VITALS: Ht 162.6 cm; Wt 70.0 kg
[~2020-12-20 11:32] MED LIST changes: +DOXY100C3 PO
[2020-12-20 14:38] VITALS: BP 135/92
[2020-12-20] MEDS ORDERED: CYCLOBENZAPRINE 10 MG TABLET. PO ONE (16:15)
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
== END 2020-12-20 18:19 | disposition home or self-care (01) ==
LOC: ER 11:32
DX: M79.10 Myalgia, unspecified site (principal); G89.29 Other chronic pain; M54.5 Low back pain; M54.6 Pain in thoracic spine; M54.2 Cervicalgia; R51.9 Headache, unspecified; I10 Essential (primary) hypertension; F17.200 Nicotine dependence, unspecified, uncomplicated; Z59.0 Homelessness; Z88.6 Allergy status to analgesic agent; Z88.8 Allergy status to other drugs, medicaments and biological substances; W10.8XXA Fall (on) (from) other stairs and steps, initial encounter; Y93.89 Activity, other specified; Y92.89 Other specified places as the place of occurrence of the external cause; Y99.8 Other external cause status
CPT/HCPCS: 70450; 72125; 72128; 72131; 99285-25

== ENCOUNTER → 2021-02-02 | Outpatient (CLI) | payer OTHER ==
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
== END ==
LOC: RAD 13:46
PROVIDERS: ATTEND Anesthesiology Pain Medicine
DX: Z02.71 Encounter for disability determination (principal); M47.816 Spondylosis without myelopathy or radiculopathy, lumbar region; M94.8X1 Other specified disorders of cartilage, shoulder
CPT/HCPCS: 72100; 73620